=== PATIENT | female | born 1990 | race Caucasian/White ===

== ENCOUNTER 2016-12-05 11:40 | Emergency (ER) | payer OTHER ==
[~2016-12-05] VITALS: Ht 157.5 cm; Wt 43.0 kg
[2016-12-05 11:49] VITALS: Ht 157.5 cm; Wt 43.0 kg
[2016-12-05] MEDS ORDERED: MED4DP PO (13:09)
--- NOTE | 2016-12-05 13:33 | ERD ---
ER Documentation Chief Complaint Chief Complaint sore throat x 1 week HPI Otherwise healthy 26-year-old female presenting with a chief complaint of loss of voice. Patient had an upper respiratory infection 1 week ago. Symptoms have subsided but loss of voiced ensued. Patient denies fever, chills, pharyngitis, dysphagia, odynophagia, difficulty breathing, shortness of breath, chest pain, sick contacts, similar symptoms in the past. Patient has not taken any medications to relieve the symptoms. No aggravating or alleviating factors. Patient has no other complaints and describes no other associated manifestations. Nursing notes have been reviewed and are consistent with history given. ROS All systems reviewed and are negative except as per history of present illness. Medications Home Meds Active Scripts Methylprednisolone* (Medrol* DOSE PACK) 4 Mg/Dose-Pack Tab.ds.pk, 4 MG PO . DIRECTED, #1 PACKET Prov:HOMER BENOIT PA-C 12/05/16 PMhx/Soc Medical and Surgical Hx: pt denies Medical Hx, pt denies Surgical Hx Physical Exam Vitals Vital Signs Date Time Temp Pulse Resp B/P Pulse Ox O2 Delivery O2 Flow Rate FiO2 12/05/16 11:49 97.3 76 18 100/58 100 Physical Exam Const: Well-appearing well-developed 26-year-old female no acute distress. Head: Atraumatic Eyes: Normal Conjunctiva ENT: Normal External Ears, Nose and Mouth. Neck: Full range of motion..~ No meningismus. Resp: Clear to auscultation bilaterally Cardio: Regular rate and rhythm, no murmurs Abd: Soft, non tender, non distended. Normal bowel sounds Skin: No petechiae or rashes Back: No midline or flank tenderness Ext: No cyanosis, or edema Neur: Awake and alert Psych: Normal Mood and Affect Procedures/MDM 6-year-old female presenting with a chief complaint of change in voice. Patient lost voice 1 week ago. For symptom onset patient had an upper respiratory infection that was treated with promethazine cough syrup. Patient denies fever, chills. No signs concerning for infection. Oropharynx was unremarkable. No swelling or edema of the oral cavity. Good air movement on pulmonary exam. Most likely diagnosis is viral laryngitis. Patient will be given a Medrol Dosepak. Antibiotics not indicated at this time. I have spoke with the patient regarding their condition and future management. They have verbally responded that they understand their status and treatment plan. The patients vitals are stable, and their current condition is appropriate for discharge. The patient will be given discharge instructions with return precautions. Departure Diagnosis: Primary Impression: Laryngitis Condition: Stable Patient Instructions: Laryngitis Additional Instructions: Follow up with your PCP within the next 1-3 days for a more thorough evaluation and a possible referral to a specialist. Return the the emergency department immediately if symptoms worsen or change. If you have any questions regarding medications, ask your pharmacist or us before you leave. If any adverse reactions occur while taking your medications, discontinue the treatment and return to the emergency department immediately. Take your medications as directed, and complete the entire course of treatment. HOMER BENOIT PA-C Dec 05, 2016 13:33
== END 2016-12-05 13:16 | disposition home or self-care (01) ==
LOC: FTE 11:40
DX: J04.0 Acute laryngitis (principal)
CPT/HCPCS: 99283